=== PATIENT | male | born 1965 | race Caucasian/White ===

== ENCOUNTER 2017-10-26 09:26 | Day surgery (SDC) | payer OTHER ==
[~2017-10-26] VITALS: Ht 165.1 cm; Wt 73.2 kg
[~2017-10-26 09:26] MED LIST: ACET500 PO; AMOCLA875 PO; BUSP10; BUSP10 PO; CITA20 PO; CLON.1 PO; CODACE30 PO; ESOM20; ESOM20 PO; HYDACE10B PO; HYDACE5 PO; LISI20 PO; MULVITMIND PO; NADO20 PO; NADO40; NADO40 PO; NAPR550 PO; OMEP10ER; OMEP20ER PO; ONDA4ODT MM; OXYACE5T PO; Omeprazole20 M1 PO; PENVK500 PO; PROM12.5S; PROM25 PO; Prinivil10 MG; Prinivil10 MG PO; RXHYDACE PO
[2017-10-26] MEDS ORDERED: PROM6.25SY (10:03)
== END 2017-10-26 12:08 | disposition home or self-care (01) ==
LOC: ORSCSDS 09:26
PROVIDERS: Internal Medicine Gastroenterology
PROC: 0DBL8ZX Excision of Transverse Colon, Via Natural or Artificial Opening Endoscopic, Diagnostic (ICD-10-PCS; principal; 2017-10-26 10:45)
PROC: 0DJ08ZZ Inspection of Upper Intestinal Tract, Via Natural or Artificial Opening Endoscopic (ICD-10-PCS; principal; 2017-10-26 10:45)
DX: I85.00 Esophageal varices without bleeding (principal); K44.9 Diaphragmatic hernia without obstruction or gangrene; K76.6 Portal hypertension; K31.89 Other diseases of stomach and duodenum; Z86.010 Personal history of colon polyps; K57.30 Diverticulosis of large intestine without perforation or abscess without bleeding; K64.8 Other hemorrhoids; I10 Essential (primary) hypertension; Z87.891 Personal history of nicotine dependence; Z79.899 Other long term (current) drug therapy
CPT/HCPCS: 88305; J2250; J7120

== ENCOUNTER 2017-11-18 12:16 | Emergency (ER) | payer OTHER ==
[~2017-11-18] VITALS: Ht 167.6 cm; Wt 72.6 kg
[~2017-11-18 12:16] MED LIST changes: +PROM6.25SY
[2017-11-18] MEDS ORDERED: Zofran Odt4 MG SL (13:26)
[2017-11-18] MEDS ORDERED: Norco 5-325 Ta1 EACH PO (13:26)
[2017-11-18] MEDS ORDERED: CYCL10 PO (13:26)
== END 2017-11-18 13:34 | disposition home or self-care (01) ==
LOC: ER 12:16
DX: S39.92XA Unspecified injury of lower back, initial encounter (principal); I10 Essential (primary) hypertension; Z88.8 Allergy status to other drugs, medicaments and biological substances; Z79.899 Other long term (current) drug therapy; Z87.891 Personal history of nicotine dependence; W01.0XXA Fall on same level from slipping, tripping and stumbling without subsequent striking against object, initial encounter
CPT/HCPCS: 72100; 99283

== ENCOUNTER → 2018-05-22 | Outpatient (CLI) | payer OTHER ==
[~2018-05-22] MED LIST changes: +CYCL10 PO; +Norco 5-325 Ta1 EACH PO; +Zofran Odt4 MG SL
[2018-05-22 20:09] LABS: BASOPHILS ABSOLUTE AUTO 0.07 K/mm3 (0.00-0.23); BASOPHILS PERCENT AUTO 1 % (0-2); EOSINOPHILS ABSOLUTE AUTO 0.25 K/mm3 (0.00-0.68); EOSINOPHILS PERCENT AUTO 4 % (0-6); Hemoglobin 13.7 g/dL (13.5-17.5); IMMATURE GRAN ABSOLUTE AUTO 0.01 K/mm3 (0.00-0.10); IMMATURE GRAN PERCENT AUTO 0 % (0-1); LYMPHOCYTES ABSOLUTE AUTO 0.96 K/mm3 (0.84-5.20); LYMPHOCYTES PERCENT AUTO 16 % (21-46); MONOCYTES PERCENT AUTO 9 % (4-13); Mean Corpuscular HGB Conc 33.4 g/dL (31.5-36.5); Mean Corpuscular Volume 90 fL (80-100); NEUTROPHILS ABSOLUTE AUTO 4.07 K/mm3 (1.96-9.15); NEUTROPHILS PERCENT AUTO 69 % (41-73); Platelet Count 100 K/mm3 (150-400); RDW Coefficient Variation 14.6 % (11.7-14.2); RDW Standard Deviation 48.4 fL (35.1-46.3); Red Blood Cell Count 4.57 M/mm3 (4.30-5.90); White Blood Cell Count 5.86 K/mm3 (4.00-11.30)
[2018-05-22 23:59] LABS: Alanine Aminotransfer (ALT/SGP 32 U/L (12-78); Albumin, Blood 3.5 g/dL (3.4-5.0); Albumin/Globulin Ratio 0.7 (0.8-1.8); Alk Phos 107 U/L (50-136); Anion Gap 8 mmol/L (6-16); Aspartate Aminotrans (AST/SGOT 67 U/L (12-37); Bilirubin, Total 1.3 mg/dL (0.1-1.0); Blood Urea Nitrogen 6 mg/dL (8-24); Bun/Creatinine Ratio 10.4 (12.0-20.0); CHOL/HDL RATIO 3.2; CO2, Blood 23 mmol/L (21-32); Calcium, Blood 8.6 mg/dL (8.5-10.1); Chloride, Blood 106 mmol/L (98-108); Cholesterol 133 mg/dL (50-200); Creatinine, Blood 0.58 mg/dL (0.60-1.20); Globulin, Blood 4.8 g/dL (2.2-4.0); Glomerular Filtration Rate >60 (60-); Glucose, Blood 103 mg/dL (70-99); HDL Cholesterol 42 mg/dL (>39); LDL/HDL RATIO 1.8; Low Density Lipoprotein Chol 75 mg/dL (0-110); Potassium, Blood 4.7 mmol/L (3.5-5.5); Sodium, Blood 137 mmol/L (136-145); Total Protein, Blood 8.3 g/dL (6.4-8.2); Triglycerides 81 mg/dL (30-160); Very Low Density Lipoprot Chol 16 mg/dL (6-32)
== END | disposition home or self-care (01) ==
LOC: LAB 19:34 → LAB SHORT 19:34
PROVIDERS: Nurse Practitioner Family
DX: I10 Essential (primary) hypertension (principal)
CPT/HCPCS: 80053; 80061; 84443; 85025

== ENCOUNTER 2018-10-10 05:06 | Day surgery (SDC) | payer OTHER ==
[~2018-10-10] VITALS: Ht 165.1 cm; Wt 68.8 kg
[~2018-10-10 05:06] MED LIST changes: +OMEPRAZOLE MAGN20 MG PO
--- NOTE | 2018-10-10 11:58 | NUR ---
10/10/18 1158 Schuyler Mcmullen S 1150- PATIENT STATES HE IS HAVING 10/10 PAIN NOW IN HIS ABDOMEN. DR BROWN ORDERED TORADOL 30 MG IV NOW. AFTER INJECTION PATIENT ASKED IF HE COULD GET DRESSED NOW. EXPLAINED TO PATIENT HE NEEDED TO LAY THERE A FEW MINUTES AND WE WILL GO OVER DISCHARGE INSTRUCTION.
== END 2018-10-10 12:10 | disposition home or self-care (01) ==
LOC: ORSCSDS 05:06
PROVIDERS: Internal Medicine Gastroenterology
PROC: 06L38CZ Occlusion of Esophageal Vein with Extraluminal Device, Via Natural or Artificial Opening Endoscopic (ICD-10-PCS; principal; 2018-10-10 10:30)
PROC: 0DJD8ZZ Inspection of Lower Intestinal Tract, Via Natural or Artificial Opening Endoscopic (ICD-10-PCS; principal; 2018-10-10 10:30)
DX: I85.00 Esophageal varices without bleeding (principal); K21.9 Gastro-esophageal reflux disease without esophagitis; Z12.11 Encounter for screening for malignant neoplasm of colon; Z86.010 Personal history of colon polyps; K76.6 Portal hypertension; K31.89 Other diseases of stomach and duodenum; K57.30 Diverticulosis of large intestine without perforation or abscess without bleeding; K64.8 Other hemorrhoids; K64.4 Residual hemorrhoidal skin tags; K70.30 Alcoholic cirrhosis of liver without ascites; Z87.891 Personal history of nicotine dependence; I10 Essential (primary) hypertension; Z79.899 Other long term (current) drug therapy
CPT/HCPCS: J1885; J2250; J2704; J7120

== ENCOUNTER 2019-03-15 00:02 | Inpatient (IN) | payer OTHER ==
[~2019-03-15] VITALS: Ht 165.1 cm; Wt 70.3 kg
[2019-03-15] MEDS ORDERED: CETI5 PO (00:17)
[2019-03-15 00:34] LABS: BASOPHILS PERCENT AUTO 1 % (0-2); EOSINOPHILS ABSOLUTE AUTO 0.58 K/mm3 (0.00-0.68); EOSINOPHILS PERCENT AUTO 6 % (0-6); Hematocrit 37.9 % (37.0-53.0); Hemoglobin 12.3 g/dL (13.5-17.5); IMMATURE GRAN ABSOLUTE AUTO 0.03 K/mm3 (0.00-0.10); IMMATURE GRAN PERCENT AUTO 0 % (0-1); LYMPHOCYTES ABSOLUTE AUTO 2.36 K/mm3 (0.84-5.20); LYMPHOCYTES PERCENT AUTO 25 % (21-46); MONOCYTES ABSOLUTE AUTO 0.94 K/mm3 (0.16-1.47); MONOCYTES PERCENT AUTO 10 % (4-13); Mean Corpuscular HGB Conc 32.5 g/dL (31.5-36.5); Mean Corpuscular Volume 96 fL (80-100); Mean Platelet Volume 10.4 fL (9.1-12.4); NEUTROPHILS ABSOLUTE AUTO 5.44 K/mm3 (1.96-9.15); NEUTROPHILS PERCENT AUTO 58 % (41-73); Platelet Count 150 K/mm3 (150-400); RDW Coefficient Variation 15.1 % (11.7-14.2); RDW Standard Deviation 53.6 fL (35.1-46.3); Red Blood Cell Count 3.97 M/mm3 (4.30-5.90); White Blood Cell Count 9.45 K/mm3 (4.00-11.30)
[2019-03-15 00:49] LABS: International Normalized Ratio 1.11; Prothrombin Time Results 11.7 Sec (9.7-11.5)
[2019-03-15 00:52] LABS: Alanine Aminotransfer (ALT/SGP 66 U/L (12-78); Albumin, Blood 3.2 g/dL (3.4-5.0); Albumin/Globulin Ratio 0.7 (0.8-1.8); Alk Phos 103 U/L (50-136); Anion Gap 7 mmol/L (6-16); Aspartate Aminotrans (AST/SGOT 93 U/L (12-37); Bilirubin, Total 0.6 mg/dL (0.1-1.0); Blood Urea Nitrogen 10 mg/dL (8-24); Bun/Creatinine Ratio 13.5 (12.0-20.0); CO2, Blood 27 mmol/L (21-32); Chloride, Blood 109 mmol/L (98-108); Creatinine, Blood 0.74 mg/dL (0.60-1.20); Ethanol (Alcohol), Blood, Med 75 mg/dL; Globulin, Blood 4.5 g/dL (2.2-4.0); Glomerular Filtration Rate >60 (60-); Glucose, Blood 101 mg/dL (70-99); Magnesium, Blood 1.7 mg/dL (1.6-2.4); Sodium, Blood 143 mmol/L (136-145); Total Protein, Blood 7.7 g/dL (6.4-8.2); Troponin I <0.015 ng/mL (0.000-0.040)
[2019-03-15 03:14] LABS: PCO2 Arterial 33.4 mmHg (35-45); PO2 Arterial 129 mmHg (80-100); pH Blood Arterial 7.39 (7.35-7.45)
[2019-03-15 04:58] LABS: BASOPHILS ABSOLUTE AUTO 0.05 K/mm3 (0.00-0.23); BASOPHILS PERCENT AUTO 1 % (0-2); EOSINOPHILS ABSOLUTE AUTO 0.11 K/mm3 (0.00-0.68); EOSINOPHILS PERCENT AUTO 1 % (0-6); Hematocrit 24.1 % (37.0-53.0); Hemoglobin 7.8 g/dL (13.5-17.5); IMMATURE GRAN ABSOLUTE AUTO 0.04 K/mm3 (0.00-0.10); IMMATURE GRAN PERCENT AUTO 0 % (0-1); LYMPHOCYTES ABSOLUTE AUTO 1.31 K/mm3 (0.84-5.20); LYMPHOCYTES PERCENT AUTO 14 % (21-46); MONOCYTES ABSOLUTE AUTO 0.76 K/mm3 (0.16-1.47); MONOCYTES PERCENT AUTO 8 % (4-13); Mean Corpuscular HGB 31.2 pg (26.0-34.0); Mean Corpuscular HGB Conc 32.4 g/dL (31.5-36.5); Mean Corpuscular Volume 96 fL (80-100); Mean Platelet Volume 10.7 fL (9.1-12.4); NEUTROPHILS ABSOLUTE AUTO 7.41 K/mm3 (1.96-9.15); NEUTROPHILS PERCENT AUTO 77 % (41-73); Platelet Count 112 K/mm3 (150-400); RDW Coefficient Variation 15.1 % (11.7-14.2); RDW Standard Deviation 53.6 fL (35.1-46.3); White Blood Cell Count 9.68 K/mm3 (4.00-11.30)
[2019-03-15 05:20] LABS: Anion Gap 8 mmol/L (6-16); Blood Urea Nitrogen 13 mg/dL (8-24); Bun/Creatinine Ratio 16.7 (12.0-20.0); CO2, Blood 21 mmol/L (21-32); Calcium, Blood 6.7 mg/dL (8.5-10.1); Chloride, Blood 117 mmol/L (98-108); Creatinine, Blood 0.78 mg/dL (0.60-1.20); Glomerular Filtration Rate >60 (60-); Glucose, Blood 130 mg/dL (70-99); Sodium, Blood 146 mmol/L (136-145)
--- NOTE | 2019-03-15 07:45 | NUR ---
SHIFT SUMMARY PT. CAME FROM ED @ 02:20. PROPOFOL WAS RUNNING AT 40, UPPED TO 60 BY END OF SHIFT FOR VENTILATOR COMPLIANCE. BLOOD PRESSURE EVENTUALLY DROPPED GIVEN THE LARGE AMOUNT OF BLOOD LOSS, PHONED DR GOODMAN WHO CAME IN EARLY TO PLACE A CENTRAL LINE. BP WELL CONTROLLED WITH LEVOPHED INFUSION, UP TO 20 MCG/MIN BY END OF SHIFT. HAD TO PLACE LINE AND GIVE BLOOD EMERGENTLY, PT. UNABLE TO SIGN CONSENT AND FAMILY UNREACHABLE AT THIS TIME. FAMILY WAS PRESENT AT TIME OF ADMIT, BUT DISAPPEARED AFTER INTUBATION AND PT. TRANSFERRED TO ICU. IT HAS BEEN A PLEASURE TAKING CARE OF THIS PATIENT.
[2019-03-15 08:16] LABS: Hematocrit 22.7 % (37.0-53.0); Hemoglobin 8.2 g/dL (13.5-17.5)
--- NOTE | 2019-03-15 08:26 | NUR ---
REPORT TAKEN AT 0700. AT 0720 WHILE ASSESSING PT, PT HAD BRIGHT RED EMESIS, HR DROPPED FROM 90 TO 48, PRESSURE DROPPED TO SBP 60'S. 1ST UNIT HAD JUST ENDED. LEVOPHED INCREASED FROM 25 TO 30, PHARMACY CALLED FOR VASOPRESSIN. CODE CART BROUGHT TO ROOM, PATCHES PLACED. LR BOLUS STARTED, DR GOODMAN CALLED. 2 UNITS [facility] ORDERED STAT AND STARTED JONE AT BOLUS RATE. PT RESPONDED WELL TO FLUIDS. PROPOFOL HAD BEEN DECREASED DURING EVENT. AFTER BOLUS STARTED PT BECAN TO AROUSE, COUGHING, BUCKING, AND RETCHING. PROPOFOL INCREASED BACK TO BASE RATE OF 60MCG. ATIVAN 2MG GIVEN W GOOD EFFECT. 08-PBRC'S COMPLETE. VASOPRESSIN STARTED FOR CONTINUED HYPOTENSION. LEVOPHED AT 25MCG
--- NOTE | 2019-03-15 08:34 | NUR ---
PT'S FATHER AND BROTHER AT BEDSIDE, UPDATE GIVEN. THEY WILL WAIT IN WAITING ROOM FOR PHYSICIAN UPDATE.
--- NOTE | 2019-03-15 08:54 | NUR ---
DR GOODMAN AT BEDSIDE; FULL UPDATE GIVEN. DOPAMINE TO BE STARTED FOR BRADYCARDIA. HR LOW 41. BP IMPROVED AFTER VASOPRESSIN STARTED. LEVOPHED DECREASED TO 15MCG. UNABLE TO TITRATE PROPOFOL DOWN D/T AGITATION; DR GOODMAN NOTIFIED. ATIVAN 2MG IVP GIVEN NOW FOR SEVERE AGITATION.
--- NOTE | 2019-03-15 09:01 | NUR ---
DR HALL AT BEDSIDE, UPDATE GIVEN. DR HALL UPDATING PT'S MOTHER AND BROTHER.
--- NOTE | 2019-03-15 09:24 | NUR ---
DR GOODMAN AT BEDSIDE GIVING FAMILY UPDATE.
--- NOTE | 2019-03-15 10:08 | NUR ---
DOPAMINE STARTED AT 5MCG. HEART RATE 80'S. ABLE TO TITRATE LEVOPHED DOWN TO 4MCG. VASOPRESSIN INFUSING 0.04UNITS/MIN
[2019-03-15 10:11] LABS: Hematocrit 30.3 % (37.0-53.0); Hemoglobin 10.6 g/dL (13.5-17.5)
--- NOTE | 2019-03-15 10:47 | NUR ---
HR DROPPED INTO 40'S, HYPOTENSIVE, [address] GOODMAN NOTIFIED. NS BOLUS STARTED. DOPAMINE INCREASED TO 10MCG.
--- NOTE | 2019-03-15 11:38 | NUR ---
03/15/19 1138 Rodriguez Gallardo PATIENT VENTED ON PROPOFOL GTT. ICU TEGAN MITCHELL IN ROOM MANAGING MEDICATIONS OVER PROCEDURE.History, Chart, Medications and Allergies reviewed before start of procedure.MONITOR INTACT WITH CONTINUOUS PULSE OXIMETRY AND INTERMITTENT BP. CASE DONE IN ICU 5.
--- NOTE | 2019-03-15 12:24 | NUR ---
Per staff request, I met with John's parents at bedside. Provided spiritual direction, assurance of great care/attention, and prayer to good effect. they are very devout in their [employer] myrna. Christianity members have performed a blessing. Met with John's brother, Addison, outside of room. He is aware of seriousness of emli's illness and is a great support to his parents. I will remain available.
[2019-03-15 13:31] LABS: Calcium, Blood 5.5 mg/dL (8.5-10.1); Magnesium, Blood 1.1 mg/dL (1.6-2.4)
[2019-03-15 13:51] LABS: Hematocrit 39.7 % (37.0-53.0); Hemoglobin 13.5 g/dL (13.5-17.5); Mean Platelet Volume 10.5 fL (9.1-12.4); Platelet Count 76 K/mm3 (150-400)
[2019-03-15 13:52] LABS: PCO2 Arterial 36.2 mmHg (35-45); PO2 Arterial 258 mmHg (80-100); pH Blood Arterial 7.35 (7.35-7.45)
--- NOTE | 2019-03-15 14:17 | NUR ---
DR BROWN AND DAY SURGERY CREW AT BEDSIDE AT 1130. EGD STARTED AT 1158 AND ENDED AT 1230. PT ACTIVELY BLEEDING FROM ESOPHAGEAL VARICES; DR UNABLE TO BAND 2ND TO SCAR TISSUE AND VISABILITY. DR GOODMAN AT BEDSIDE AT 1240 FOR ACTIVE BLEED. 1LITER NS BOLUS STATERT AT END OF SCOPE. LEVOPHED TITRATED UP TO 10MCG AFTER SCOPE. IT NOW IS ON STANDBY. DOPAMINE REMAINS AT 10MCG. VASOPRESSIN CONT TO INFUSE. AT 1259 DR GOODMAN ORDERED A MASS TRANSFUSION PROTOCOL. 3UNITS PRBC'S RAPIDLY INFUSED VIA LEVEL 1 WITH EILEEN RN/ER ASSIST. CALCIUM AND MG REPLACED. AT 1330 DR GOODMAN WITH NIA LI RN ASSIT PLACED A [place] TUBE. XRAY CONFIRMED PLACEMENT. [place] TUBE 40IN AT LIP AND HELD WITH 500CC SALINE BAG FOR TRACTION. FAMILY AT BEDSIDE AND UPDATED BY BOTH DR GOODMAN AND DR BROWN. PT TO BE POSSIBLY TRANSFERED FOR POSSIBLE TIPS PROCEDURE.
--- NOTE | 2019-03-15 14:54 | NUR ---
Spiritual Care note: Provided senior vice president & general counsel and comfort throughout afternoon to John's parents and brother. Mom and dad are appreciaitive of prayer and spiritual senior vice president & general counsel/comfort. At this time, John is becoming more stable and plans are being made to transfer to higher level of care. Strongly encouraged Mom and Dad to eat and rest. They appear frail and exhausted. I will remain available.
[2019-03-15 15:02] LABS: BASOPHILS ABSOLUTE AUTO 0.07 K/mm3 (0.00-0.23); BASOPHILS PERCENT AUTO 1 % (0-2); EOSINOPHILS ABSOLUTE AUTO 0.24 K/mm3 (0.00-0.68); EOSINOPHILS PERCENT AUTO 3 % (0-6); Hemoglobin 12.8 g/dL (13.5-17.5); IMMATURE GRAN ABSOLUTE AUTO 0.03 K/mm3 (0.00-0.10); IMMATURE GRAN PERCENT AUTO 0 % (0-1); LYMPHOCYTES PERCENT AUTO 14 % (21-46); MONOCYTES ABSOLUTE AUTO 1.51 K/mm3 (0.16-1.47); MONOCYTES PERCENT AUTO 16 % (4-13); Mean Corpuscular HGB 31.6 pg (26.0-34.0); Mean Corpuscular HGB Conc 34.6 g/dL (31.5-36.5); Mean Corpuscular Volume 91 fL (80-100); Mean Platelet Volume 10.9 fL (9.1-12.4); NEUTROPHILS ABSOLUTE AUTO 6.19 K/mm3 (1.96-9.15); NEUTROPHILS PERCENT AUTO 66 % (41-73); RDW Coefficient Variation 14.6 % (11.7-14.2); RDW Standard Deviation 49.5 fL (35.1-46.3); Red Blood Cell Count 4.05 M/mm3 (4.30-5.90); White Blood Cell Count 9.34 K/mm3 (4.00-11.30)
[2019-03-15 15:03] LABS: Platelet Count 60 K/mm3 (150-400)
[2019-03-15 15:17] LABS: International Normalized Ratio 1.25
--- NOTE | 2019-03-15 17:02 | NUR ---
PT DC'D IN CARE OF REACH TEAM AT 1700. DOPAMINE AT 10MCG, VASOPRESSIN AT 0.04UNITS, LEVOPHED AT 2MCG, PROPOFOL AT 60MCG. DR GOODMAN AT BEDSIDE; [place] TUBE AT 35CM (POST TENSION MEASUREMENT). ETT AT 23CM. ATIVAN 2MG IVP FOR SLIGHT AGITATION GIVEN PRIOR TO TRANSFER TO [facility]. FULL REPORT GIVEN TO REACH TEAM WELL BEDSIDE ASSISTANCE. FULL REPORT GIVEN TO ANABAPTISM NITA ADRIAN AT 1700. PROTONIX DC'D PRIOR TO TRANSFER PER DR GOODMAN. PT SENT ON SANDOSTATIN GTT AND LR GTT PREVIOUSLY ORDERED. NO ACTIVE BLEEDING NOTED FROM TIME OF [place] TUBE PLACEMENT.
== END 2019-03-15 17:00 | disposition short-term general hospital (02) | DRG 432 ==
LOC: ER 00:02 → ICUE 02:25 → ICUW 02:31 → ICUE 02:41
PROVIDERS: Emergency Medicine; Internal Medicine Critical Care Medicine; Internal Medicine Gastroenterology; ADMIT Family Medicine
PROC: 0D748ZZ Dilation of Esophagogastric Junction, Via Natural or Artificial Opening Endoscopic (ICD-10-PCS; 2019-03-15)
PROC: 0W3P8ZZ Control Bleeding in Gastrointestinal Tract, Via Natural or Artificial Opening Endoscopic (ICD-10-PCS; 2019-03-15)
PROC: 0BH17EZ Insertion of Endotracheal Airway into Trachea, Via Natural or Artificial Opening (ICD-10-PCS; 2019-03-15)
PROC: 30243K1 Transfusion of Nonautologous Frozen Plasma into Central Vein, Percutaneous Approach (ICD-10-PCS; 2019-03-15)
PROC: 30243N1 Transfusion of Nonautologous Red Blood Cells into Central Vein, Percutaneous Approach (ICD-10-PCS; 2019-03-15)
PROC: 3E043XZ Introduction of Vasopressor into Central Vein, Percutaneous Approach (ICD-10-PCS; 2019-03-15)
PROC: 0DL58DZ Occlusion of Esophagus with Intraluminal Device, Via Natural or Artificial Opening Endoscopic (ICD-10-PCS; principal; 2019-03-15 11:30)
DX: K70.30 Alcoholic cirrhosis of liver without ascites (principal); I85.11 Secondary esophageal varices with bleeding; R57.8 Other shock; E83.42 Hypomagnesemia; E87.6 Hypokalemia; D50.0 Iron deficiency anemia secondary to blood loss (chronic); I10 Essential (primary) hypertension; F17.210 Nicotine dependence, cigarettes, uncomplicated; I95.9 Hypotension, unspecified; F10.20 Alcohol dependence, uncomplicated
CPT/HCPCS: 31500; 31720; 36415; 36430; 36556; 36600; 51702; 71045; 80048; 80053; 82310; 82803; 83605; 83690; 83735; 84484; 85014; 85018; 85025; 85049; 85384; 85610; 85730; 86850; 86900; 86901; 86923; 94002; 94003; 96361-59; 96365-59; 96375-59; 96376-59; 99291-25; C1751; C9113; G0480; J0610; J0696; J1265; J2060; J2270; J2354; J2405; J2550; J2704; J3010; J3411; J3475; J7030; J7040; J7050; J7060; J7120; P9016; P9035; P9059

== ENCOUNTER 2019-09-23 08:49 | Day surgery (SDC) | payer OTHER ==
[~2019-09-23] VITALS: Ht 165.1 cm; Wt 78.4 kg
[~2019-09-23 08:49] MED LIST changes: +B-1100 M1 PO; +CETI5 PO; +RIFA550T2 PO
[2019-09-23] MEDS ORDERED: PANT40 (09:15)
== END 2019-09-23 10:05 | disposition home or self-care (01) ==
LOC: ORSCSDS 08:49
PROVIDERS: Internal Medicine Gastroenterology
PROC: 0DJ08ZZ Inspection of Upper Intestinal Tract, Via Natural or Artificial Opening Endoscopic (ICD-10-PCS; principal; 2019-09-23 10:15)
PROC: 0D758ZZ Dilation of Esophagus, Via Natural or Artificial Opening Endoscopic (ICD-10-PCS; principal; 2019-09-23 10:15)
DX: K70.30 Alcoholic cirrhosis of liver without ascites (principal); K44.9 Diaphragmatic hernia without obstruction or gangrene; I10 Essential (primary) hypertension; F41.9 Anxiety disorder, unspecified; Z87.891 Personal history of nicotine dependence; Z79.899 Other long term (current) drug therapy
CPT/HCPCS: J2250; J2704; J7120

== ENCOUNTER 2020-02-26 09:10 | Day surgery (SDC) | payer OTHER ==
[~2020-02-26] VITALS: Ht 165.1 cm; Wt 80.7 kg
[~2020-02-26 09:10] MED LIST changes: +ACET325 PO; +AMLO5 PO; +FOLI1 PO; +LACT10SY PO; +MULTIVITAMINS1 EAC3 PO; +PANT40; +PANT40 PO
--- NOTE | 2020-02-26 10:33 | NUR ---
02/26/20 1033 Sosa Garrett IV REMOVED FROM R HAND PRIOR TO DISCHARGE. SITE CDI/
== END 2020-02-26 09:11 | disposition home or self-care (01) ==
LOC: ORSCSDS 09:10
PROVIDERS: Internal Medicine Gastroenterology
PROC: 0DJ08ZZ Inspection of Upper Intestinal Tract, Via Natural or Artificial Opening Endoscopic (ICD-10-PCS; principal; 2020-02-26 08:00)
DX: K74.60 Unspecified cirrhosis of liver (principal); Z13.810 Encounter for screening for upper gastrointestinal disorder; K44.9 Diaphragmatic hernia without obstruction or gangrene; I10 Essential (primary) hypertension; F10.20 Alcohol dependence, uncomplicated; E55.9 Vitamin D deficiency, unspecified; F41.9 Anxiety disorder, unspecified; Z87.891 Personal history of nicotine dependence; Z79.899 Other long term (current) drug therapy
CPT/HCPCS: J0461; J2250; J2405; J2704; J7120

== ENCOUNTER 2020-08-24 21:49 | Emergency (ER) | payer OTHER ==
[~2020-08-24] VITALS: Ht 165.1 cm; Wt 74.8 kg
== END 2020-08-25 00:31 | disposition home or self-care (01) ==
LOC: ER 21:49
DX: S61.210A Laceration without foreign body of right index finger without damage to nail, initial encounter (principal); I10 Essential (primary) hypertension; Z88.1 Allergy status to other antibiotic agents; Z88.8 Allergy status to other drugs, medicaments and biological substances; Z79.899 Other long term (current) drug therapy; Z87.891 Personal history of nicotine dependence; W26.0XXA Contact with knife, initial encounter
CPT/HCPCS: 12001; 99282; A9270

== ENCOUNTER 2020-09-28 09:51 | Emergency (ER) | payer OTHER ==
[~2020-09-28] VITALS: Ht 165.1 cm; Wt 74.8 kg
[2020-09-28 11:36] LABS: BASOPHILS ABSOLUTE AUTO 0.04 K/mm3 (0.00-0.23); BASOPHILS PERCENT AUTO 1 % (0-2); EOSINOPHILS ABSOLUTE AUTO 0.12 K/mm3 (0.00-0.68); EOSINOPHILS PERCENT AUTO 3 % (0-6); Hematocrit 30.8 % (37.0-53.0); Hemoglobin 9.2 g/dL (13.5-17.5); IMMATURE GRAN ABSOLUTE AUTO 0.01 K/mm3 (0.00-0.10); IMMATURE GRAN PERCENT AUTO 0 % (0-1); LYMPHOCYTES ABSOLUTE AUTO 1.21 K/mm3 (0.84-5.20); LYMPHOCYTES PERCENT AUTO 30 % (21-46); MONOCYTES ABSOLUTE AUTO 0.42 K/mm3 (0.16-1.47); MONOCYTES PERCENT AUTO 10 % (4-13); Mean Corpuscular HGB 21.7 pg (26.0-34.0); Mean Corpuscular HGB Conc 29.9 g/dL (31.5-36.5); Mean Corpuscular Volume 73 fL (80-100); NEUTROPHILS PERCENT AUTO 56 % (41-73); Platelet Count 70 K/mm3 (150-400); RDW Coefficient Variation 20.1 % (11.7-14.2); RDW Standard Deviation 51.8 fL (35.1-46.3); Red Blood Cell Count 4.24 M/mm3 (4.30-5.90)
== END 2020-09-28 12:19 | disposition home or self-care (01) ==
LOC: ER 09:51
PROVIDERS: Emergency Medicine
DX: D53.9 Nutritional anemia, unspecified (principal); D75.9 Disease of blood and blood-forming organs, unspecified; K70.30 Alcoholic cirrhosis of liver without ascites; I10 Essential (primary) hypertension; Z88.8 Allergy status to other drugs, medicaments and biological substances; Z79.899 Other long term (current) drug therapy
CPT/HCPCS: 85025; 99283

== ENCOUNTER 2021-03-11 13:22 | Day surgery (SDC) | payer OTHER ==
[~2021-03-11] VITALS: Ht 165.1 cm; Wt 80.9 kg
== END 2021-03-11 15:44 | disposition home or self-care (01) ==
LOC: ORSCSDS 13:22
PROVIDERS: Internal Medicine Gastroenterology
PROC: 0DJD8ZZ Inspection of Lower Intestinal Tract, Via Natural or Artificial Opening Endoscopic (ICD-10-PCS; principal; 2021-03-11 14:30)
DX: K62.5 Hemorrhage of anus and rectum (principal); Z86.010 Personal history of colon polyps; K64.4 Residual hemorrhoidal skin tags; K57.30 Diverticulosis of large intestine without perforation or abscess without bleeding; K76.6 Portal hypertension; K31.89 Other diseases of stomach and duodenum; K74.60 Unspecified cirrhosis of liver; Z79.899 Other long term (current) drug therapy
CPT/HCPCS: J2250; J2704; J7120

== ENCOUNTER 2022-06-28 18:29 | Emergency (ER) | payer OTHER ==
[~2022-06-28] VITALS: Ht 165.1 cm; Wt 77.1 kg
[~2022-06-28 18:29] MED LIST changes: +CONSTULOSE10 GM/15 M PO; +Inderal 20 mg T20 MG PO
== END 2022-06-28 20:10 | disposition home or self-care (01) ==
LOC: ER 18:29
DX: S93.402A Sprain of unspecified ligament of left ankle, initial encounter (principal); W18.30XA Fall on same level, unspecified, initial encounter; I10 Essential (primary) hypertension; Z87.891 Personal history of nicotine dependence
CPT/HCPCS: 29515; 73610; 96372-59; 99283-25; J1885

== ENCOUNTER 2023-06-07 07:12 | Day surgery (SDC) | payer OTHER ==
[~2023-06-07] VITALS: Ht 167.6 cm; Wt 76.9 kg
[2023-06-07] MEDS ORDERED: propofoL 50 ML IV ONE (07:34)
[2023-06-07] MEDS ORDERED: Lactated Ringer's 1,000 ML IV ONE ×2 (07:35→08:36)
[2023-06-07] MEDS ORDERED: BACL10 (08:13)
[2023-06-07] MEDS ORDERED: OXYC5 (08:14)
[2023-06-07] MEDS ORDERED: Midazolam HCL 1 MG/ML 5MLVIAL ONE (08:42)
[2023-06-07 09:24] VITALS: BP 120/82
== END 2023-06-07 09:24 | disposition home or self-care (01) ==
LOC: ORSCSDS 07:12
PROVIDERS: Internal Medicine Gastroenterology
PROC: 0DB98ZX Excision of Duodenum, Via Natural or Artificial Opening Endoscopic, Diagnostic (ICD-10-PCS; principal; 2023-06-07 08:45)
PROC: 0DB68ZX Excision of Stomach, Via Natural or Artificial Opening Endoscopic, Diagnostic (ICD-10-PCS; principal; 2023-06-07 08:45)
DX: R11.2 Nausea with vomiting, unspecified (principal); K92.1 Melena; R10.9 Unspecified abdominal pain; B96.81 Helicobacter pylori [H. pylori] as the cause of diseases classified elsewhere; K70.31 Alcoholic cirrhosis of liver with ascites; I85.10 Secondary esophageal varices without bleeding; K44.9 Diaphragmatic hernia without obstruction or gangrene; Z86.010 Personal history of colon polyps; K76.6 Portal hypertension; K31.89 Other diseases of stomach and duodenum; Z87.891 Personal history of nicotine dependence; Z79.899 Other long term (current) drug therapy
CPT/HCPCS: 88305; 88342; J2250; J2704; J7120

== ENCOUNTER 2023-06-29 06:27 | Day surgery (SDC) | payer OTHER ==
[~2023-06-29] VITALS: Ht 167.6 cm; Wt 76.2 kg
[~2023-06-29 06:27] MED LIST changes: +BACL10; +OXYC5; +ZYRTEC10 M2 PO
[2023-06-29] MEDS ORDERED: RIFA550T2 (07:09)
[2023-06-29] MEDS ORDERED: FAMO20 (07:10)
[2023-06-29] MEDS ORDERED: ELEMENTAL ZINC30 MG (07:10)
[2023-06-29] MEDS ORDERED: MAGNESIUM OXID500 MG PO (07:11)
[2023-06-29] MEDS ORDERED: METR250 (07:11)
[2023-06-29] MEDS ORDERED: TETR250 (07:11)
[2023-06-29] MEDS ORDERED: NOVAFERRUM125 MG/51 (07:12)
[2023-06-29] MEDS ORDERED: propofoL 50 ML IV ONE (07:34)
[2023-06-29] MEDS ORDERED: Lactated Ringer's 1,000 ML IV ONE ×2 (07:34→08:08)
[2023-06-29] MEDS ORDERED: Ondansetron HCl 2 MG / ML 2ML Vial ONE (07:58)
[2023-06-29] MEDS ORDERED: Midazolam HCL 1 MG/ML 5MLVIAL ONE (08:04)
[2023-06-29 09:14] VITALS: BP 102/65
== END 2023-06-29 09:18 | disposition home or self-care (01) ==
LOC: ORSCSDS 06:27
PROVIDERS: Internal Medicine Gastroenterology
PROC: 0DBL8ZX Excision of Transverse Colon, Via Natural or Artificial Opening Endoscopic, Diagnostic (ICD-10-PCS; principal; 2023-06-29 08:00)
DX: K62.5 Hemorrhage of anus and rectum (principal); R10.13 Epigastric pain; D12.3 Benign neoplasm of transverse colon; K64.4 Residual hemorrhoidal skin tags; K76.6 Portal hypertension; K57.30 Diverticulosis of large intestine without perforation or abscess without bleeding; K74.60 Unspecified cirrhosis of liver; K76.82 Hepatic encephalopathy; Z87.11 Personal history of peptic ulcer disease; Z86.010 Personal history of colon polyps; R11.2 Nausea with vomiting, unspecified; E55.9 Vitamin D deficiency, unspecified; Z87.891 Personal history of nicotine dependence; Z79.899 Other long term (current) drug therapy
CPT/HCPCS: 88305; J2250; J2405; J2704; J7120

== ENCOUNTER 2024-02-06 17:42 | Emergency (ER) | payer OTHER ==
[~2024-02-06] VITALS: Ht 167.6 cm; Wt 74.8 kg
[~2024-02-06 17:42] MED LIST changes: +ELEMENTAL ZINC30 MG; +FAMO20; +MAGNESIUM OXID500 MG PO; +METR250; +NOVAFERRUM125 MG/51; +RIFA550T2; +TETR250
[2024-02-06] MEDS ORDERED: Ondansetron HCl 2 MG / ML 2ML Vial IV PRN (18:10)
[2024-02-06 18:36] LABS: Hematocrit 44.4 % (37.0-53.0); Hemoglobin 16.6 g/dL (13.5-17.5); Mean Corpuscular HGB 33.7 pg (26.0-34.0); Mean Corpuscular HGB Conc 37.4 g/dL (31.5-36.5); Mean Corpuscular Volume 90 fL (80-100); Mean Platelet Volume 10.3 fL (9.1-12.4); Platelet Count 63 K/mm3 (150-400); RDW Coefficient Variation 13.3 % (11.7-14.2); RDW Standard Deviation 44.2 fL (35.1-46.3); Red Blood Cell Count 4.92 M/mm3 (4.30-5.90); White Blood Cell Count 9.79 K/mm3 (4.00-11.30)
[2024-02-06 18:58] LABS: BAND PERCENT MAN 1 % (0-8); BASOPHILS PERCENT MAN 0 % (0-2); EOSINOPHILS PERCENT MAN 0 % (0-6); LYMPHOCYTES % ATYPICAL MANUAL 1 % (0-0); LYMPHOCYTES ABSOLUTE MAN 0.88 K/mm3 (0.84-5.20); LYMPHOCYTES PERCENT MAN 8 % (21-46); MONOCYTES ABSOLUTE MAN 1.86 K/mm3 (0.16-1.47); MONOCYTES PERCENT MAN 19 % (4-13); NEUTROPHILS ABSOLUTE MAN 7.04 K/mm3 (1.96-9.15); SEG NEUTROPHILS PERCENT MAN 71 % (41-73); TOTAL CELLS COUNTED 100
[2024-02-06 19:12] LABS: Albumin/Globulin Ratio 0.8 (0.8-1.8); Bilirubin, Total 3.3 mg/dL (0.1-1.0); Bun/Creatinine Ratio 13.3 (12.0-20.0); Calcium, Blood 8.8 mg/dL (8.5-10.1); Creatinine, Blood 0.68 mg/dL (0.60-1.20); Globulin, Blood 3.9 g/dL (2.2-4.0); Potassium, Blood 3.9 mmol/L (3.5-5.5); Total Protein, Blood 6.9 g/dL (6.4-8.2)
[2024-02-06] MEDS ORDERED: ONDA4ODT MM (20:31)
[2024-02-06 21:20] LABS: Influenza A, PCR NEGATIVE (NEGATIVE); Influenza B, PCR NEGATIVE (NEGATIVE); Resp Syncytial Virus, PCR NEGATIVE (NEGATIVE); SARS-Cov-2 (COVID-19) PCR, MMC NEGATIVE (NEGATIVE)
[2024-02-06] MEDS ORDERED: Lactated Ringer's 1,000 ML IV ONE (21:45)
[2024-02-06] MEDS ORDERED: Metoclopramide HCl 5MG / ML 2ML Vial IV ONE (21:45)
[2024-02-06 22:47] LABS: Source, Urine Clean Catch
[2024-02-06 22:49] LABS: Bilirubin, Urine Neg (Neg); Blood, Urine Neg (Neg); Glucose Qualitative, Urine Neg (Neg); Ketones, Urine 1+ (Neg); Leukocyte Esterase, Urine 1+ (Neg); Nitrite, Urine Neg (Neg); Protein, Urine 2+ (Neg); Urobilinogen, Urine 2+ (Normal); pH, Urine 6.5 (5.0-8.0)
[2024-02-06 22:56] LABS: Appearance, Urine Clear (Clear); Color, Urine Yellow (P-Yellow)
[2024-02-06 22:57] LABS: Bacteria Rare /hpf; Red Blood Cells, Urine 0-2 /hpf (0-2); Squamous Epithelial Cells Few /hpf (Few); White Blood Cells, Urine 0-2 /hpf (0-5)
[2024-02-06] MEDS ORDERED: Ketorolac Tromethamine 15mg Vial IV ONE (23:00)
[2024-02-07 00:15] VITALS: BP 105/94
[2024-02-07] MEDS ORDERED: METO10 PO (00:48)
== END 2024-02-07 01:02 | disposition home or self-care (01) ==
LOC: ER 17:42
PROVIDERS: Emergency Medicine; Student in an Organized Health Care Education/Training Program
DX: R10.84 Generalized abdominal pain (principal); R11.2 Nausea with vomiting, unspecified; R50.9 Fever, unspecified; I10 Essential (primary) hypertension; Z87.19 Personal history of other diseases of the digestive system; Z87.891 Personal history of nicotine dependence; Z79.899 Other long term (current) drug therapy; Z88.8 Allergy status to other drugs, medicaments and biological substances
CPT/HCPCS: 0241U; 74177; 80053; 81001; 83690; 85025; 93005; 93010; 96361; 96374-59; 96375; 99284-25; J1885; J2765; J7120; Q9967